=== PATIENT | female | born 1930 | race Caucasian/White ===

== ENCOUNTER 2016-12-03 07:14 | Emergency (ER) | payer OTHER ==
[~2016-12-03] VITALS: Ht 167.6 cm; Wt 77.2 kg
[~2016-12-03 07:14] MED LIST: Atarax,Vistaril PO; Bactrim,Septra DS 80 PO; Cosopt 0.5% Ophth So RIGHT EYE; Ditropan XL PO; LITHIUM CARBON300 MG PO; Lipitor PO; Norvasc PO; Tenormin PO; oxyCODONE PO
[2016-12-03 08:18] LABS: HEMATOCRIT 43.1 % (36.0-46.0); MCH 26.8 PG (29.0-34.0); MCHC 31.6 G/DL (30.0-36.0); MEAN PLAT.VOLUME 9.9 uM^3 (9.5-12.4); PLATELET COUNT 244 K/uL (156-360); RBC DIS.WIDTH-CV 14.3 % (11.8-14.6); RBC DIS.WIDTH-SD 44.4 % (39-53); RED BLOOD COUNT 5.07 M/uL (3.80-5.20); WHITE BLOOD COUNT 6.6 K/uL (4.1-10.2)
[2016-12-03 08:41] LABS: ANION GAP 10 MEQ/L (2-14); CHLORIDE 108 MEQ/L (99-109); POTASSIUM 4.1 MEQ/L (3.7-5.4); SAMPLE HEMOLYSIS CHECK 0; SAMPLE ICTERIC CHECK 0; SAMPLE LIPEMIA CHECK 0; SODIUM 142 MEQ/L (136-147)
[2016-12-03 08:47] LABS: GFR ESTIMATE (CALCULATED) > 59 mL/min/; GLUCOSE 125 mg/dL (70-99); UREA NITROGEN (BUN) 26 mg/dL (9-23)
[2016-12-03 08:52] LABS: TROP-I INTERPRETATION NEGATIVE; TROPONIN-I 0.02 ng/mL (0.0-0.30)
[2016-12-03 09:30] LABS: ADD MIUA? YES; BILIRUBIN NEGATIVE; BLOOD NEGATIVE; COLOR STRAW ((YELLOW)); GLUCOSE (STRIP) NEGATIVE; KETONES 5; LEUKOCYTES LARGE; NITRITE NEGATIVE; PROTEIN (STRIP) NEGATIVE; SPECIFIC GRAVITY 1.011 (1.000-1.030); UROBILINOGEN 0.2 MG/DL (0.2-1.0)
[2016-12-03 09:33] LABS: BACTERIA RARE /HPF; EPITHELIAL CELLS RARE /HPF; MUCUS TRACE /LPF; RED BLOOD CELLS 0-5 /HPF (0-5); UCUL ADDED? NO; WHITE BLOOD CELLS 20-30 /HPF (0-5)
[2016-12-03] MEDS ORDERED: BACTRIM,SEPT1 TABLET PO (10:08)
[2016-12-03 10:30] VITALS: BP 130/75
== END 2016-12-03 10:54 | disposition home or self-care (01) ==
LOC: EME 07:14
PROVIDERS: Nurse Practitioner Family
DX: N39.0 Urinary tract infection, site not specified (principal); M16.0 Bilateral primary osteoarthritis of hip; Z91.81 History of falling; I10 Essential (primary) hypertension; F31.9 Bipolar disorder, unspecified; Z87.891 Personal history of nicotine dependence
CPT/HCPCS: 73502; 80048; 81003; 84484; 85027; 93005; 99281; 99284

== ENCOUNTER 2016-12-10 15:48 | Inpatient (IN) | payer OTHER ==
[~2016-12-10] VITALS: Ht 167.6 cm; Wt 73.0 kg
[~2016-12-10 15:48] MED LIST changes: +BACTRIM,SEPT1 TABLET PO
[2016-12-10 16:25] LABS: HEMATOCRIT 43.6 % (36.0-46.0); MCH 26.8 PG (29.0-34.0); MCHC 31.4 G/DL (30.0-36.0); MCV 85.2 FL (83-99); PLATELET COUNT 250 K/uL (156-360); RBC DIS.WIDTH-CV 14.6 % (11.8-14.6); RBC DIS.WIDTH-SD 45.1 % (39-53); RED BLOOD COUNT 5.12 M/uL (3.80-5.20); WHITE BLOOD COUNT 6.5 K/uL (4.1-10.2)
[2016-12-10 16:26] LABS: CHLORIDE 108 mEq/L (99-109); POTASSIUM 3.8 mEq/L (3.7-5.4); SODIUM 140 mEq/L (136-147)
[2016-12-10 16:29] LABS: ANION GAP 12 MEQ/L (2-14); GLUCOSE 119 mg/dL (70-99)
[2016-12-10 16:32] LABS: GFR ESTIMATE (CALCULATED) > 59 mL/min/; UREA NITROGEN (BUN) 19 mg/dL (9-23)
[2016-12-10 16:54] LABS: TROP-I INTERPRETATION NEGATIVE; TROPONIN-I 0.01 ng/mL (0.0-0.30)
[2016-12-10 18:44] LABS: ADD MIUA? YES; BILIRUBIN NEGATIVE; BLOOD SMALL; COLOR YELLOW ((YELLOW)); GLUCOSE (STRIP) NEGATIVE; KETONES 5; LEUKOCYTES LARGE; NITRITE NEGATIVE; PROTEIN (STRIP) NEGATIVE; SPECIFIC GRAVITY 1.009 (1.000-1.030); UROBILINOGEN 0.2 MG/DL (0.2-1.0)
[2016-12-10 18:54] LABS: BACTERIA 3+ /HPF; EPITHELIAL CELLS NONE SEEN /HPF; MUCUS 1+ /LPF; RED BLOOD CELLS 0-5 /HPF (0-5); UCUL ADDED? YES; WHITE BLOOD CELLS 20-30 /HPF (0-5); WHITE BLOOD CELLS CLUMP FEW /HPF (0-5)
[2016-12-10] MEDS ORDERED: LITHOBID300 MG PO (19:18)
[2016-12-10] MEDS ORDERED: DITROPAN XL10 MG PO (19:19)
[2016-12-10] MEDS ORDERED: LIPITOR10 MG PO (19:20)
[2016-12-10] MEDS ORDERED: COSOPT EYE DROPS5 ML RIGHT EYE (19:22)
[2016-12-10] MEDS ORDERED: TENORMIN25 MG PO (19:23)
[2016-12-10] MEDS ORDERED: ATARAX,VISTARIL25 MG PO (19:24)
[2016-12-10] MEDS ORDERED: AMLODIPINE BESYL5 MG PO (19:24)
[2016-12-10 21:55] VITALS: BP 151/64
[2016-12-11 01:52] VITALS: BP 180/89
[2016-12-11 06:41] LABS: EOSINOPHIL (%) 0.7 % (0-5); HEMATOCRIT 46.1 % (36.0-46.0); IMMATURE GRANULOCYTE (%) 0.3 % (0.0-0.7); INSTRUMENT ABS NEUTROPHIL CT 4.6 K/uL; MCH 26.3 PG (29.0-34.0); MCHC 30.8 G/DL (30.0-36.0); MCV 85.5 FL (83-99); MEAN PLAT.VOLUME 10.1 uM^3 (9.5-12.4); MONOCYTE (%) 5.7 % (3-12); MONOCYTE COUNT 0.4 K/uL (0-0.8); NEUTROPHIL (%) 75.8 % (45-76); NEUTROPHIL COUNT 4.6 K/uL (1.8-6.4); PLATELET COUNT 286 K/uL (156-360); RBC DIS.WIDTH-CV 14.4 % (11.8-14.6); RBC DIS.WIDTH-SD 45.5 % (39-53); RED BLOOD COUNT 5.39 M/uL (3.80-5.20); WHITE BLOOD COUNT 6.1 K/uL (4.1-10.2)
[2016-12-11 07:15] LABS: ANION GAP 9 MEQ/L (2-14); CHLORIDE 111 MEQ/L (99-109); GFR ESTIMATE (CALCULATED) > 59 mL/min/; GLUCOSE 106 mg/dL (70-99); POTASSIUM 3.9 MEQ/L (3.7-5.4); SAMPLE HEMOLYSIS CHECK 0; SAMPLE ICTERIC CHECK 0; SAMPLE LIPEMIA CHECK 0; SODIUM 145 MEQ/L (136-147); UREA NITROGEN (BUN) 13 mg/dL (9-23)
[2016-12-11 08:06] VITALS: BP 164/88
[2016-12-11 15:31] VITALS: BP 164/60
[2016-12-11 20:13] VITALS: BP 156/66
[2016-12-12 00:28] VITALS: BP 182/86
[2016-12-12 04:27] VITALS: BP 177/88
[2016-12-12 08:23] VITALS: BP 151/68
[2016-12-12 11:37] VITALS: BP 140/61
[2016-12-13 00:02] VITALS: BP 132/68
[2016-12-13 08:21] VITALS: BP 161/82
[2016-12-13] MEDS ORDERED: CEFDINIR300 MG PO (13:13)
== END 2016-12-13 16:07 | DRG 71 ==
LOC: EME 15:48 → EDOF 20:50 → 5SOUTH 20:50 → EDOF 12-11 01:15 → 5SOUTH 12-11 01:35
PROVIDERS: Hospitalist
DX: G93.41 Metabolic encephalopathy (principal); F03.90 Unspecified dementia, unspecified severity, without behavioral disturbance, psychotic disturbance, mood disturbance, and anxiety; N39.0 Urinary tract infection, site not specified; F31.9 Bipolar disorder, unspecified; R90.82 White matter disease, unspecified; G31.9 Degenerative disease of nervous system, unspecified; I10 Essential (primary) hypertension; Z87.440 Personal history of urinary (tract) infections; Z87.891 Personal history of nicotine dependence
CPT/HCPCS: 70450; 70551; 71020; 80048; 80178; 81003; 84484; 85025; 85027; 87077; 87086; 87186; 93005; 99281; 99285; J0692; J0696; J1644; J7030; J7050

== ENCOUNTER 2017-06-12 15:11 | Emergency (ER) | payer OTHER ==
[~2017-06-12] VITALS: Ht 170.2 cm; Wt 78.7 kg
[2017-06-12 15:11] VITALS: BP 142/88
[~2017-06-12 15:11] MED LIST changes: +AMLODIPINE BESYL5 MG PO; +ATARAX,VISTARIL25 MG PO; +CEFDINIR300 MG PO; +COSOPT EYE DROPS5 ML RIGHT EYE; +DITROPAN XL10 MG PO; +LIPITOR10 MG PO; +LITHOBID300 MG PO; +TENORMIN25 MG PO
[2017-06-12 16:50] LABS: HEMATOCRIT 42.6 % (36.0-46.0); MCH 27.4 PG (29.0-34.0); MCHC 32.2 G/DL (30.0-36.0); MCV 85.2 FL (83-99); PLATELET COUNT 270 K/uL (156-360); RBC DIS.WIDTH-CV 13.6 % (11.8-14.6); RBC DIS.WIDTH-SD 42.6 % (39-53); WHITE BLOOD COUNT 9.6 K/uL (4.1-10.2)
[2017-06-12 17:03] LABS: CHLORIDE 109 mEq/L (99-109); POTASSIUM 4.1 mEq/L (3.7-5.4); SODIUM 140 mEq/L (136-147)
[2017-06-12 17:04] LABS: GLUCOSE 113 mg/dL (70-99)
[2017-06-12 17:06] LABS: ANION GAP 10 MEQ/L (2-14)
[2017-06-12 17:08] LABS: GFR ESTIMATE (CALCULATED) > 59 mL/min/
[2017-06-12 17:09] LABS: UREA NITROGEN (BUN) 27 mg/dL (9-23)
[2017-06-12 18:54] LABS: ADD MIUA? NO; BILIRUBIN NEGATIVE; BLOOD NEGATIVE; COLOR YELLOW ((YELLOW)); GLUCOSE (STRIP) NEGATIVE; KETONES NEGATIVE; LEUKOCYTES NEGATIVE; NITRITE NEGATIVE; PROTEIN (STRIP) NEGATIVE; SPECIFIC GRAVITY 1.015 (1.000-1.030); UCUL ADDED? NO; UROBILINOGEN 0.2 MG/DL (0.2-1.0)
== END 2017-06-12 18:59 | disposition home or self-care (01) ==
LOC: EME 15:11
PROVIDERS: Emergency Medicine
DX: R41.82 Altered mental status, unspecified (principal); F03.90 Unspecified dementia, unspecified severity, without behavioral disturbance, psychotic disturbance, mood disturbance, and anxiety; S02.2XXA Fracture of nasal bones, initial encounter for closed fracture; W18.30XA Fall on same level, unspecified, initial encounter; I10 Essential (primary) hypertension; F32.9 Major depressive disorder, single episode, unspecified; F41.9 Anxiety disorder, unspecified; Z88.6 Allergy status to analgesic agent; Z88.1 Allergy status to other antibiotic agents; Z87.891 Personal history of nicotine dependence; Z88.8 Allergy status to other drugs, medicaments and biological substances
CPT/HCPCS: 70450; 80048; 80178; 81003; 85027; 99281; 99285